=== PATIENT | male | born 1970 | race Caucasian/White ===

== ENCOUNTER → 2016-06-28 | Outpatient (CLI) | payer OTHER ==
--- NOTE | 2016-06-28 14:46 | DIAGNOSTIC IMAGING REPORT ---
CT OF THE CHEST WITHOUT IV CONTRAST CLINICAL HISTORY: PULMONARY NODULE R91.1 COMPARISON STUDY: 03/04/2016 CT DOSE: 879.56 mGycm TECHNIQUE: CT of the thorax was performed from the thoracic inlet to the lung bases. Images are reviewed in the axial, sagittal, and coronal planes. IV contrast was not administered for this examination. FINDINGS: Thyroid: Imaged portions of the thyroid gland are normal in appearance. Thoracic aorta: The thoracic aorta is normal in course and caliber, noting standard 3 vessel arch anatomy. Heart: The heart is normal in size and configuration, without pericardial effusion. Lungs and pleural spaces: There are no pleural effusions. There is no focal pulmonary consolidation. There are areas of lingular and right lower lobe atelectatic change. There is a stable 10 mm right lower lobe perifissural nodule. Mediastinum: There is no mediastinal lymphadenopathy. Lyly: Clear. Axilla: Clear. Upper abdomen: There is hepatic steatosis. There is cholelithiasis. Skeletal structures: There are no lytic or blastic osseous lesions. IMPRESSION: 1. Stable 10 mm right lower lobe perifissural nodule. Given the three-year stability, no further imaging follow-up is deemed necessary 2. No evidence of pathologic adenopathy 3. Cholelithiasis 4. Hepatic steatosis Electronically signed by: Martín Lee M.D. 06/28/2016 2:45 PM Dictated Date/Time: 06/28/2016 2:37 PM
== END | disposition home or self-care (01) ==
LOC: C.CTS 14:16
PROVIDERS: ATTEND Internal Medicine
DX: R91.1 Solitary pulmonary nodule (principal)